=== PATIENT | male | born 1980 | race Two or more races ===

== ENCOUNTER 2019-11-18 13:04 | Inpatient (IN) | payer SELFPAY ==
[~2019-11-18] VITALS: Ht 165.1 cm; Wt 93.0 kg
[2019-11-18 13:15] VITALS: BP 136/88
--- NOTE | 2019-11-18 13:15 | NUR ---
ED Nurse Note: Patient walked in to ED from home c/o right side abdominal pain since last night. Denies nausea, vomiting, diarrhea. Per pt, he feels like there is air inside his abdomen. Not in any distress. Pt AAOx4, verbally responsive, on room air. ERPA at bedside.
--- NOTE | 2019-11-18 13:20 | NUR ---
ED Nurse Note: IV line established. Blood and urine specimen collected and sent to lab.
[2019-11-18] MEDS ORDERED: Ketorolac 30mg Inj IV ONE (13:30)
[2019-11-18 13:41] LABS: HEMATOCRIT 44.9 % (42.0-52.0); HEMOGLOBIN 15.1 G/DL (14.2-18.0); MEAN CORPUSCULAR VOLUME 96 FL (80-99); PLATELET COUNT 179 K/UL (150-450); RED BLOOD COUNT 4.66 M/UL (4.70-6.10); RED CELL DISTRIBUTION WIDTH 11.6 % (11.6-14.8); WHITE BLOOD COUNT 15.4 K/UL (4.8-10.8)
[2019-11-18 13:45] LABS: APPEARANCE,URINE CLEAR; BILIRUBIN, URINE NEGATIVE (NEGATIVE); COLOR,URINE PALE YELLOW; GLUCOSE, URINE (UA) NEGATIVE (NEGATIVE); KETONES,URINE NEGATIVE (NEGATIVE); LEUKOCYTE ESTERASE ,URINE NEGATIVE (NEGATIVE); NITRITE,URINE NEGATIVE (NEGATIVE); PH,URINE 7 (4.5-8.0); PROTEIN,URINE 1+ (NEGATIVE); UROBILINOGEN,URINE NORMAL MG/DL (0.0-1.0)
[2019-11-18 14:00] LABS: ANION GAP 11 mmol/L (5-15); BLOOD UREA NITROGEN 11 mg/dL (7-18); CALCIUM 8.6 MG/DL (8.5-10.1); CARBON DIOXIDE 26 MMOL/L (21-32); CHLORIDE 99 MMOL/L (98-107); CREATININE 1.2 MG/DL (0.55-1.30); POTASSIUM 3.5 MMOL/L (3.5-5.1); SODIUM 136 MMOL/L (136-145)
[2019-11-18] MEDS ORDERED: Omnipaque-300 100ml vial INJ PRN (14:00)
[2019-11-18 14:11] LABS: ALANINE AMINOTRANSFERASE 40 U/L (12-78); ALBUMIN 4.1 G/DL (3.4-5.0); ALBUMIN/GLOBULIN RATIO 0.9 (1.0-2.7); ALKALINE PHOSPHATASE 72 U/L (46-116); ASPARTATE AMINO TRANSFERASE 19 U/L (15-37); BILIRUBIN,TOTAL 1.2 MG/DL (0.2-1.0)
[2019-11-18 14:15] LABS: BILIRUBIN,DIRECT 0.2 MG/DL (0.0-0.3)
--- NOTE | 2019-11-18 14:20 | NUR ---
ED Nurse Note: Pt was taken to CT.
--- NOTE | 2019-11-18 14:33 | NUR ---
ED Nurse Note: Pt returned from CT.
--- NOTE | 2019-11-18 15:42 | Diagnostic Imaging Report ---
EXAM: CT CT Abdomen Pelvis w/Contrast INDICATION: Abdominal pain. COMPARISON: None TECHNIQUE: Axial images were obtained through the abdomen pelvis with intravenous contrast. Sagittal and coronal reformats are generated. All CT scans at this facility are performed using dose modulation techniques as appropriate to a performed exam including the following: automated exposure control with adjustment of the mA and/or kV according to patient size. RADIATION DOSE: CTDIvol: 9.7 mGy DLP: 560.7 mGy-cm Dose information generated by the CT scanner is available in PACS. FINDINGS: The lung bases are clear. There is mild diffuse fatty liver. The spleen is homogeneous. Gallbladder is without sludge or stone and there is no wall thickening. The pancreas is unremarkable. Adrenals are normal in morphology. The kidneys are normal in size, shape and axis. Small bowel loops are nondistended. The colon is also nondistended with average amount of stool. The appendix is distended with surrounding inflammation consistent with clinical suspicion of acute appendicitis. There is no free fluid or free air. No pathologic adenopathy demonstrated. Urinary bladder appears unremarkable. There is a large fatty left inguinal hernia. IMPRESSION: DISTENDED AND INFLAMED APPENDIX COMPATIBLE WITH ACUTE APPENDICITIS. LARGE FATTY LEFT INGUINAL HERNIA. FATTY LIVER.
--- NOTE | 2019-11-18 15:45 | Emergency Room Report ---
History of Present Illness General Chief Complaint: Abdominal Pain Source: Patient (Frankie Westfall) Present Illness HPI 39-year-old male with no signal past medical history here complaining of sudden onset of right-sided abdominal pain pointing to right mid abdomen periumbilical that started last night. Denies any nausea vomiting diarrhea. Denies fever and chills. Rates the pain 3 out of 10 without radiation. Patient has no guarding to palpation however reports that it started without doing anything strenuous. Denies any urinary symptoms. Denies tobacco smoking marijuana use per denies alcohol intake. Denies eating anything out of the ordinary. Also complains of acid reflux and flatulence. Denies chest pain, shortness of breath , headache and dizziness. Has not taken medication for symptom relief. (Frankie Westfall) Allergies: Coded Allergies: No Known Allergies (Unverified , 11/18/19) COVID-19 Screening Contact w/high risk pt: No Recent Travel to affected area: No Experienced COVID-19 symptoms?: No COVID-19 Testing performed NUT TAPPER: No (Frankie Westfall) Patient History Past Medical History: see triage record Past Surgical History: none Pertinent Family History: none Immunizations: UTD Reviewed Nursing Documentation: PMH: Agreed; PSxH: Agreed (Frankie Westfall) Nursing Documentation-PMH Past Medical History: No Stated History (Frankie Westfall) Review of Systems All Other Systems: negative except mentioned in HPI (Frankie Westfall) Physical Exam Vital Signs Date Time Temp Pulse Resp B/P (MAP) Pulse Ox O2 Delivery O2 Flow Rate FiO2 11/18/19 13:08 99.7 101 22 136/88 (104) 96 Room Air Sp02 EP Interpretation: reviewed, normal General Appearance: no apparent distress, alert, GCS 15, non-toxic Head: normocephalic, atraumatic Eyes: bilateral eye normal inspection, bilateral eye PERRL ENT: hearing grossly normal, normal pharynx, no angioedema, normal voice Neck: full range of motion, supple, supple/symm/no masses Respiratory: chest non-tender, lungs clear, normal breath sounds, no rhonchi, no respiratory distress, speaking full sentences Cardiovascular #1: regular rate, rhythm, no edema, no murmur, normal capillary refill Gastrointestinal: normal bowel sounds, soft, no mass, no peritonitis, non- distended, no guarding, no pulsatile mass, no rebound, tenderness - periumbilical Rectal: deferred Musculoskeletal: back normal Neurologic: alert, motor strength/tone normal, oriented x3, sensory intact, responsive, speech normal Psychiatric: judgement/insight normal, memory normal, mood/affect normal, no suicidal/homicidal ideation Skin: no rash Lymphatic: no adenopathy (Frankie Westfall) Medical Decision Making PA Attestation Diagnosis and treatment plans were reviewed and discussed with my supervising physician Dr[facility] Ryder [facility] Diagnostic Impression: Primary Impression: Appendicitis Qualified Codes: K35.890 - Other acute appendicitis without perforation or gangrene ER Course 39-year-old male with no signal past medical history here complaining of sudden onset of right-sided abdominal pain pointing to right mid abdomen periumbilical that started last night. Denies any nausea vomiting diarrhea. Denies fever and chills. Rates the pain 3 out of 10 without radiation. Patient has no guarding to palpation however reports that it started without doing anything strenuous. Denies any urinary symptoms. Denies tobacco smoking marijuana use per denies alcohol intake. Denies eating anything out of the ordinary. Also complains of acid reflux and flatulence. Denies chest pain, shortness of breath , headache and dizziness. Has not taken medication for symptom relief. Ddx considered but are not limited to: appendicitis, cholecystis, gastritis, gastroenteritis, UTI, pyelonephritis, SBO, diverticulitis, influenza with GI manifestation, NC, pancreatitis, gastritis Vital signs: are WNL, pt. is afebrile H&PE are most consistent with: Appendicitis ORDERS: abdominal CT, abdominal pain set, EKG, chest x-ray ED INTERVENTIONS: NS bolus, morphine, Zofran, Zosyn, Pepcid Patient was admitted with diagnosis of appendicitis to Dr. Damon under supervision of Dr.: Aleksey Robbins was also consulted pt stable at time of admission (Frankie Westfall) ER Course Please see above note. History and physical performed by me also. CT is diagnostic for appendicitis. Agree with treatment plan. Patient will need an operation. No evidence at this time of perforation or peritonitis. Patient examined by Dr. Robbins in the emergency department in the emergency department. (Chicho Ryder MD) EKG Diagnostic Results Rate: normal Rhythm: NSR ST Segments: no acute changes Other Impression No acute ST changes (Frankie Westfall) Chest X-Ray Diagnostic Results Chest X-Ray Diagnostic Results : Chest X-Ray Ordered: Yes # of Views/Limited/Complete: 1 View Indication: Other EP Interpretation: Yes PA Xray: Interpretation reviewed, by supervising MD, and agrees with findings. Interpretation: no consolidation, no effusion, no pneumothorax Impression: No acute disease Electronically Signed by: Frankie Rodríguez PA-C (Frankie Westfall) CT/MRI/US Diagnostic Results CT/MRI/US Diagnostic Results : Imaging Test Ordered: CT abdomen pelvis with contrast Impression Appendicitis noted (Frankie Westfall) Last Vital Signs Date Time Temp Pulse Resp B/P (MAP) Pulse Ox O2 Delivery O2 Flow Rate FiO2 11/18/19 14:00 99.6 11/18/19 13:15 101 22 136/88 96 Room Air (Frankie Westfall) Last Vital Signs Date Time Temp Pulse Resp B/P (MAP) Pulse Ox O2 Delivery O2 Flow Rate FiO2 11/19/19 00:00 99.3 116 21 133/90 (104) 93 11/18/19 21:36 Room Air Status: improved (Chicho Ryder MD) Disposition: ADMITTED INPATIENT Condition: Serious Scripts No Active Prescriptions or Reported Meds Referrals: NOT CHOSEN IPA/,REFERRING (PCP) Frankie Westfall Nov 18, 2019 15:45 Chicho Ryder MD Nov 18, 2019 16:06
[2019-11-18] MEDS ORDERED: Morphine Sulfate 2mg/ml Inj(IV/IM USE ONLY) IVP ONE (16:00)
[2019-11-18] MEDS ORDERED: Piperacillin/Tazobactam 3.375 GM in NS 110 ML IVPB ONE (16:00)
--- NOTE | 2019-11-18 16:06 | NUR ---
ED Nurse Note: Xray at bedside.
[2019-11-18 16:10] VITALS: BP 133/69
--- NOTE | 2019-11-18 18:14 | Diagnostic Imaging Report ---
Indication: Reason For Exam: PAIN Technique: Single AP view of the chest. Comparison: CT abdomen and pelvis from the same day. Findings: The cardiomediastinal silhouette is within normal limits. There is no focal consolidation, pneumothorax or pleural effusion. Osseous structures demonstrate no acute abnormality. IMPRESSION: No radiographic evidence of acute cardiac pulmonary disease.
--- NOTE | 2019-11-18 19:25 | NUR ---
ED Nurse Note: Report given to ARACELIS Waddell. pt is ready for transfer to floor
--- NOTE | 2019-11-18 19:50 | NUR ---
NURSE NOTES: Recived pt from er nurse Addy jones. pt is awake,a&o x4, and verbal. pt has no sob and cough. pt is complaining of pain and fever is 102. pt is ambulatory. Iv is intact and asymptomatic. Patient is NPO except ice chips and meds. Bed in the lowest position,locked and call light within reach. We will continue monitoring the pt.
[2019-11-18 20:00] VITALS: BP 125/86
--- NOTE | 2019-11-18 20:03 | Consultation ---
History of Present Illness General Date patient seen: Nov 18, 2019 Reason for Hospitalization: Abdominal Pain Present Illness HPI 39-year-old male with no signal past medical history here complaining of sudden onset of right-sided abdominal pain pointing to right mid abdomen periumbilical that started last night. Denies any nausea vomiting diarrhea. Denies fever and chills. Rates the pain 3 out of 10 without radiation. Patient has no guarding to palpation however reports that it started without doing anything strenuous. Denies any urinary symptoms. Denies tobacco smoking marijuana use per denies alcohol intake. Denies eating anything out of the ordinary. Also complains of acid reflux and flatulence. Denies chest pain, shortness of breath , headache and dizziness. Has not taken medication for symptom relief. Surgery called to evaluate and assist with care. Patient seen, patient evaluate , chart reviewed CT reviewed Allergies: Coded Allergies: No Known Allergies (Unverified , 11/18/19) COVID-19 Screening Contact w/high risk pt: No Recent Travel to affected area: No Experienced COVID-19 symptoms?: No Medication History No Active Prescriptions or Reported Meds Patient History History Provided By: Patient, Medical Record, PMD Healthcare decision maker Resuscitation status Advanced Directive on File Past Medical/Surgical History Past Medical/Surgical History: (1) Appendicitis Review of Systems Review of Symptoms General ROS: no weight loss or fever Psychological ROS: no depression or mood changes, no memory loss Ophthalmic ROS: no visual changes or eye irritation ENT ROS: no nasal congestion, hearing loss, dizziness Allergy and Immunology ROS: no allergic symptoms or urticaria Hematological and Lymphatic ROS: no swollen glands, unusual bleeding or bruising Endocrine ROS: no polyuria, polydipsia, weight changes, temperature intolerance Respiratory ROS: no cough, shortness of breath, or wheezing Cardiovascular ROS: no chest pain or dyspnea on exertion Gastrointestinal ROS: ++abdominal pain, --bright red blood in stool. Musculoskeletal ROS: no myalgias or arthralgias Neurological ROS: no TIA or stroke symptoms Dermatological ROS: no new or changing skin lesions, rashes or pruritis Physical Exam Physical Exam General appearance: alert, cooperative, no distress, appears stated age Head: Normocephalic, without obvious abnormality, atraumatic Eyes: conjunctivae/corneas clear. PERRL, EOM's intact. Fundi benign Throat: Lips, mucosa, and tongue normal. Teeth and gums normal Neck: supple, symmetrical, trachea midline, no adenopathy, thyroid: not enlarged, symmetric, no tenderness/mass/nodules, no carotid bruit and no JVD Lungs: clear to auscultation bilaterally Heart: regular rate and rhythm, S1, S2 normal, no murmur, click, rub or gallop Abdomen: soft, rlq-tender. Bowel sounds normal. No masses, no organomegaly Extremities: extremities normal, atraumatic, no cyanosis or edema Pulses: 2+ and symmetric Skin: Skin color, texture, turgor normal. No rashes or lesions Neurologic: Grossly normal Last 24 Hour Vital Signs Date Time Temp Pulse Resp B/P (MAP) Pulse Ox O2 Delivery O2 Flow Rate FiO2 11/18/19 16:30 99.6 11/18/19 16:10 99.6 89 19 133/69 100 Room Air 11/18/19 14:00 99.6 11/18/19 13:15 99.7 101 22 136/88 96 Room Air 11/18/19 13:15 101 22 Room Air 11/18/19 13:08 99.7 101 22 136/88 (104) 96 Room Air Laboratory Tests Test 11/18/19 13:22 11/18/19 15:35 White Blood Count 15.4 K/UL (4.8-10.8) H Red Blood Count 4.66 M/UL (4.70-6.10) L Hemoglobin 15.1 G/DL (14.2-18.0) Hematocrit 44.9 % (42.0-52.0) Mean Corpuscular Volume 96 FL (80-99) Mean Corpuscular Hemoglobin 32.3 PG (27.0-31.0) H Mean Corpuscular Hemoglobin Concent 33.5 G/DL (32.0-36.0) Red Cell Distribution Width 11.6 % (11.6-14.8) Platelet Count 179 K/UL (150-450) Mean Platelet Volume 9.8 FL (6.5-10.1) Neutrophils (%) (Auto) % (45.0-75.0) Lymphocytes (%) (Auto) % (20.0-45.0) Monocytes (%) (Auto) % (1.0-10.0) Eosinophils (%) (Auto) % (0.0-3.0) Basophils (%) (Auto) % (0.0-2.0) Differential Total Cells Counted 100 Neutrophils % (Manual) 81 % (45-75) H Lymphocytes % (Manual) 8 % (20-45) L Monocytes % (Manual) 6 % (1-10) Eosinophils % (Manual) 0 % (0-3) Basophils % (Manual) 0 % (0-2) Band Neutrophils 5 % (0-8) Platelet Estimate Adequate Platelet Morphology Normal Red Blood Cell Morphology Normal Urine Color Pale yellow Urine Appearance Clear Urine pH 7 (4.5-8.0) Urine Specific [place] 1.005 (1.005-1.035) Urine Protein 1+ (NEGATIVE) H Urine Glucose (UA) Negative (NEGATIVE) Urine Ketones Negative (NEGATIVE) Urine Blood 5+ (NEGATIVE) H Urine Nitrite Negative (NEGATIVE) Urine Bilirubin Negative (NEGATIVE) Urine Urobilinogen Normal MG/DL (0.0-1.0) Urine Leukocyte Esterase Negative (NEGATIVE) Urine RBC 10-15 /HPF (0 - 0) H Urine WBC 0-2 /HPF (0 - 0) Urine Squamous Epithelial Cells Occasional /LPF Urine Bacteria Occasional /HPF (NONE) Sodium Level 136 MMOL/L (136-145) Potassium Level 3.5 MMOL/L (3.5-5.1) Chloride Level 99 MMOL/L (98-107) Carbon Dioxide Level 26 MMOL/L (21-32) Anion Gap 11 mmol/L (5-15) Blood Urea Nitrogen 11 mg/dL (7-18) Creatinine 1.2 MG/DL (0.55-1.30) Estimat Glomerular Filtration Rate > 60 mL/min (>60) Glucose Level 144 MG/DL (74-106) H Calcium Level 8.6 MG/DL (8.5-10.1) Total Bilirubin 1.2 MG/DL (0.2-1.0) H Direct Bilirubin 0.2 MG/DL (0.0-0.3) Aspartate Amino Transf (AST/SGOT) 19 U/L (15-37) Alanine Aminotransferase (ALT/SGPT) 40 U/L (12-78) Alkaline Phosphatase 72 U/L (46-116) Troponin I 0.000 ng/mL (0.000-0.056) Total Protein 8.5 G/DL (6.4-8.2) H Albumin 4.1 G/DL (3.4-5.0) Globulin 4.4 g/dL Albumin/Globulin Ratio 0.9 (1.0-2.7) L Lipase 80 U/L (73-393) Urine Opiates Screen Negative (NEGATIVE) Urine Barbiturates Screen Negative (NEGATIVE) Phencyclidine (PCP) Screen Negative (NEGATIVE) Urine Amphetamines Screen Negative (NEGATIVE) Urine Benzodiazepines Screen Negative (NEGATIVE) Urine Cocaine Screen Negative (NEGATIVE) Urine Marijuana (THC) Screen Negative (NEGATIVE) Prothrombin Time 10.9 SEC (9.30-11.50) Prothromb Time International Ratio 1.0 (0.9-1.1) Activated Partial Thromboplast Time 28 SEC (23-33) Height (Feet): 5 Height (Inches): 7.00 Weight (Pounds): 195 Medications Current Medications Medications (Trade) Dose Ordered Sig/Wale Route PRN Reason Start Time Stop Time Status Last Admin Dose Admin Iohexol (OMNIPAQUE-300 100ml) 100 ml NOW PRN INJ Radiology Procedure 11/18/19 14:00 11/20/19 13:52 Sodium Chloride 1,000 ml @ 300 mls/hr Q3H20M IV 11/18/19 17:15 12/18/19 17:14 11/18/19 17:16 Assessment/Plan Problem List: (1) Appendicitis Assessment & Plan: 39M acute appy npo iv fluids iv abx consent will schedule OR for lap vs open appy when possible thank you The lung bases are clear. There is mild diffuse fatty liver. The spleen is homogeneous. Gallbladder is without sludge or stone and there is no wall thickening. The pancreas is unremarkable. Adrenals are normal in morphology. The kidneys are normal in size, shape and axis. Small bowel loops are nondistended. The colon is also nondistended with average amount of stool. The appendix is distended with surrounding inflammation consistent with clinical suspicion of acute appendicitis. There is no free fluid or free air. No pathologic adenopathy demonstrated. Urinary bladder appears unremarkable. There is a large fatty left inguinal hernia. IMPRESSION: DISTENDED AND INFLAMED APPENDIX COMPATIBLE WITH ACUTE APPENDICITIS. LARGE FATTY LEFT INGUINAL HERNIA. FATTY LIVER. ICD Codes: K37 - Unspecified appendicitis SNOMED: [id number] Salomon Robbins Nov 18, 2019 20:03
--- NOTE | 2019-11-18 20:04 | Pre-Procedure Note/Attestation ---
Pre-Procedure Note/Attestation Complete Prior to Procedure Procedure Narrative: laparoscopic appendectomy possible open Indications for Procedure Pre-Operative Diagnosis: acute appendicitis Attestation I attest that I discussed the nature of the procedure; its benefits; risks and complications; and alternatives (and the risks and benefits of such alternatives ), prior to the procedure, with the patient (or the patient's legal sales representative graphic art). I attest that, if there was a reasonable possibility of needing a blood transfusion, the patient (or the patient's legal sales representative graphic art) was given the [facility] standardized written summary, pursuant to the [employer] Sofie Blood Safety Act ([place] Health and Safety Code # 1645, as amended). I attest that I re-evaluated the patient just prior to the surgery and that there has been no change in the patient's H&P, except as documented below: Salomon Robbins Nov 18, 2019 20:04
[2019-11-18] MEDS ORDERED: LORazepam 1mg tab ORAL PRN (20:15)
[2019-11-18] MEDS ORDERED: Mylanta II UD 30ml ORAL PRN (20:15)
[2019-11-18] MEDS: Morphine Sulfate 2mg/ml Inj(IV/IM USE ONLY) IVP PRN (20:31)
[2019-11-18] MEDS: NS w/KCl 20mEq 1000ml 1,000 ML IV SCH (21:07)
[2019-11-19] VITALS (12 sets, daily range): BP systolic 89–139; BP diastolic 54–91
[2019-11-19 05:51] LABS: HEMATOCRIT 48.7 % (42.0-52.0); HEMOGLOBIN 15.9 G/DL (14.2-18.0); MEAN CORPUSCULAR VOLUME 97 FL (80-99); PLATELET COUNT 137 K/UL (150-450); RED BLOOD COUNT 5.02 M/UL (4.70-6.10); RED CELL DISTRIBUTION WIDTH 12.4 % (11.6-14.8); WHITE BLOOD COUNT 4.8 K/UL (4.8-10.8)
[2019-11-19 05:54] LABS: INR 1.1 (0.9-1.1)
[2019-11-19 05:59] LABS: ANION GAP 14 mmol/L (5-15); BLOOD UREA NITROGEN 14 mg/dL (7-18); CARBON DIOXIDE 21 MMOL/L (21-32); CHLORIDE 107 MMOL/L (98-107); CREATININE 1.6 MG/DL (0.55-1.30); POTASSIUM 3.6 MMOL/L (3.5-5.1); SODIUM 142 MMOL/L (136-145)
[2019-11-19] MEDS: NS w/KCl 20mEq 1000ml 1,000 ML IV SCH ×3 (06:27→23:50)
--- NOTE | 2019-11-19 07:20 | NUR ---
HAND-OFF: Report given to ARACELIS Patel.
--- NOTE | 2019-11-19 07:59 | NUR ---
NURSE NOTES: Patient awake and alert and oriented,IV fluids infusing as ordered.Patient is NPO for schedule surgery this Am.Call light within reach.
[2019-11-19] MEDS ORDERED: NeoSporin Gu Irrig 1ml Amp IRRIG ONE (08:34)
[2019-11-19] MEDS ORDERED: Bacitracin 50000 Units Vial ONE (08:34)
--- NOTE | 2019-11-19 08:53 | NUR ---
NURSE NOTES: DR Luke here to see patient,updated DR on patient heart rate of 127-130, patient has no complaint of chest pain,patient has complaint of abdominal pain.DR Luke state to get stat EKG and give pain medication as ordered.
[2019-11-19] MEDS ORDERED: HYDROcodone/Acetamin 5/325 tab ORAL PRN (09:00)
[2019-11-19] MEDS: Morphine Sulfate 2mg/ml Inj(IV/IM USE ONLY) IVP PRN (09:00)
[2019-11-19] MEDS ORDERED: LR 1000ml 1,000 ML IVLG SCH (09:00)
[2019-11-19] MEDS ORDERED: Labetalol 5mg/ml 20ml vial IV PRN (09:00)
[2019-11-19] MEDS ORDERED: Acetaminophen (Non formulary) 100 ML IV ONE ×2 (09:00→09:30)
[2019-11-19] MEDS ORDERED: Hydromorphone 0.5mg/0.5ml inj IVP PRN (09:00)
[2019-11-19] MEDS ORDERED: Ketorolac 30mg Inj IV PRN ×2 (09:00)
[2019-11-19] MEDS ORDERED: fentaNYL 100 mcg/2 mL IV PRN (09:00)
[2019-11-19] MEDS ORDERED: oxyCODONE HCL/Acetaminophen 5/325mg ORAL PRN (09:00)
[2019-11-19] MEDS ORDERED: Metoclopramide 10mg/2ml Inj IVP PRN (09:00)
[2019-11-19] MEDS ORDERED: Meperidine 25mg/0.5ml Inj (FOR RIGORS ONLY) IV PRN (09:00)
[2019-11-19] MEDS ORDERED: DiphenhydrAMINE 50mg/ml Inj IVP PRN (09:00)
[2019-11-19] MEDS ORDERED: LORazepam Inj 2mg/ml 1ml IV PRN (09:00)
[2019-11-19] MEDS ORDERED: Atropine Sulfate 0.4mg/ml inj IVP PRN (09:00)
[2019-11-19] MEDS ORDERED: HYDROcodone/Acetamin 7.5/325 tab ORAL PRN (09:00)
[2019-11-19] MEDS ORDERED: Midazolam 2mg/2ml Inj IVP PRN (09:00)
--- NOTE | 2019-11-19 09:02 | Anethesia Preoperative Eval ---
Anesthesia Pre-op PMH/ROS General Date of Evaluation: Nov 19, 2019 Time of Evaluation: 11:39 Anesthesiologist: Brady ASA Score: ASA 2 - Emergency Mallampati Score Class I : Soft palate, uvula, fauces, pillars visible Class II: Soft palate, uvula, fauces visible Class III: Soft palate, base of uvula visible Class IV: Only hard plate visible Mallampati Classification: Class II Surgeon: Rosendo Diagnosis: Abd Pain Surgical Procedure: Laparoscopic Appendectomy Anesthesia History: none Family History: no anesthesia problems Allergies: Coded Allergies: No Known Allergies (Unverified , 11/18/19) Medications: see eMAR Patient NPO?: Yes Past Medical History Cardiovascular: Reports: HTN Other: obesity - BMI 35 Anesthesia Pre-op Phys. Exam Physician Exam Last Vital Signs Date Time Temp Pulse Resp B/P (MAP) Pulse Ox O2 Delivery O2 Flow Rate FiO2 11/19/19 08:00 99.9 127 20 134/91 (105) 2 11/18/19 21:36 Room Air Constitutional: NAD Neurologic: CN 2-12 intact Cardiovascular: RRR Respiratory: CTA Gastrointestinal: S/NT/ND Airway Exam Mallampati Score: Class II MO: full ROM: full Teeth: intact Anesthesia Pre-op A/P Labs Hematology Test 11/18/19 13:22 11/19/19 04:45 White Blood Count 15.4 K/UL (4.8-10.8) H 4.8 K/UL (4.8-10.8) # Red Blood Count 4.66 M/UL (4.70-6.10) L 5.02 M/UL (4.70-6.10) Hemoglobin 15.1 G/DL (14.2-18.0) 15.9 G/DL (14.2-18.0) Hematocrit 44.9 % (42.0-52.0) 48.7 % (42.0-52.0) Mean Corpuscular Volume 96 FL (80-99) 97 FL (80-99) Mean Corpuscular Hemoglobin 32.3 PG (27.0-31.0) H 31.6 PG (27.0-31.0) H Mean Corpuscular Hemoglobin Concent 33.5 G/DL (32.0-36.0) 32.6 G/DL (32.0-36.0) Red Cell Distribution Width 11.6 % (11.6-14.8) 12.4 % (11.6-14.8) Platelet Count 179 K/UL (150-450) 137 K/UL (150-450) L Mean Platelet Volume 9.8 FL (6.5-10.1) 9.7 FL (6.5-10.1) Neutrophils (%) (Auto) % (45.0-75.0) % (45.0-75.0) Lymphocytes (%) (Auto) % (20.0-45.0) % (20.0-45.0) Monocytes (%) (Auto) % (1.0-10.0) % (1.0-10.0) Eosinophils (%) (Auto) % (0.0-3.0) % (0.0-3.0) Basophils (%) (Auto) % (0.0-2.0) % (0.0-2.0) Differential Total Cells Counted 100 Neutrophils % (Manual) 81 % (45-75) H Pending Lymphocytes % (Manual) 8 % (20-45) L Pending Monocytes % (Manual) 6 % (1-10) Eosinophils % (Manual) 0 % (0-3) Basophils % (Manual) 0 % (0-2) Band Neutrophils 5 % (0-8) Platelet Estimate Adequate Pending Platelet Morphology Normal Pending Red Blood Cell Morphology Normal Coagulation Test 11/18/19 15:35 11/19/19 04:45 Prothrombin Time 10.9 SEC (9.30-11.50) 12.2 SEC (9.30-11.50) H Prothromb Time International Ratio 1.0 (0.9-1.1) 1.1 (0.9-1.1) Activated Partial Thromboplast Time 28 SEC (23-33) 29 SEC (23-33) Chemistry Test 11/18/19 13:22 11/19/19 04:45 Sodium Level 136 MMOL/L (136-145) 142 MMOL/L (136-145) Potassium Level 3.5 MMOL/L (3.5-5.1) 3.6 MMOL/L (3.5-5.1) Chloride Level 99 MMOL/L (98-107) 107 MMOL/L (98-107) Carbon Dioxide Level 26 MMOL/L (21-32) 21 MMOL/L (21-32) Anion Gap 11 mmol/L (5-15) 14 mmol/L (5-15) Blood Urea Nitrogen 11 mg/dL (7-18) 14 mg/dL (7-18) Creatinine 1.2 MG/DL (0.55-1.30) 1.6 MG/DL (0.55-1.30) H Estimat Glomerular Filtration Rate > 60 mL/min (>60) 48.9 mL/min (>60) Glucose Level 144 MG/DL (74-106) H 134 MG/DL (74-106) H Calcium Level 8.6 MG/DL (8.5-10.1) 8.0 MG/DL (8.5-10.1) L Total Bilirubin 1.2 MG/DL (0.2-1.0) H Direct Bilirubin 0.2 MG/DL (0.0-0.3) Aspartate Amino Transf (AST/SGOT) 19 U/L (15-37) Alanine Aminotransferase (ALT/SGPT) 40 U/L (12-78) Alkaline Phosphatase 72 U/L (46-116) Troponin I 0.000 ng/mL (0.000-0.056) Total Protein 8.5 G/DL (6.4-8.2) H Albumin 4.1 G/DL (3.4-5.0) Globulin 4.4 g/dL Albumin/Globulin Ratio 0.9 (1.0-2.7) L Lipase 80 U/L (73-393) Risk Assessment & Plan Assessment: ASA 2E Plan: GA, SED, GlideScope Status Change Before Surgery: No Pre-Antibiotics Dru Gram Ancef IV Given Within 1 Hr of Incision: Yes Time Given: 11:56 Todd Abreu MD Nov 19, 2019 09:02
--- NOTE | 2019-11-19 09:10 | Surgery Progress Note ---
Surgery Progress Note Subjective Additional Comments labs noted or today Objective Last 24 Hour Vital Signs Date Time Temp Pulse Resp B/P (MAP) Pulse Ox O2 Delivery O2 Flow Rate FiO2 11/19/19 08:00 99.9 127 20 134/91 (105) 2 11/19/19 04:00 99.5 108 20 139/91 (107) 93 11/19/19 00:00 99.3 116 21 133/90 (104) 93 11/18/19 21:36 Room Air 11/18/19 21:02 102.1 11/18/19 21:01 102.8 11/18/19 20:19 Room Air 11/18/19 20:00 102.8 118 19 125/86 (99) 95 11/18/19 16:30 99.6 11/18/19 16:10 99.6 89 19 133/69 100 Room Air 11/18/19 14:00 99.6 11/18/19 13:15 99.7 101 22 136/88 96 Room Air 11/18/19 13:15 101 22 Room Air 11/18/19 13:08 99.7 101 22 136/88 (104) 96 Room Air I&O Intake and Output 11/18/19 11/19/19 19:00 07:00 Intake Total 2110 ml 900 ml Output Total 350 ml Balance 2110 ml 550 ml Intake Oral 0 ml IV Total 2110 ml 900 ml Output Urine Total 350 ml Laboratory Tests Test 11/18/19 13:22 11/18/19 15:35 11/19/19 04:45 White Blood Count 15.4 K/UL (4.8-10.8) H 4.8 K/UL (4.8-10.8) # Red Blood Count 4.66 M/UL (4.70-6.10) L 5.02 M/UL (4.70-6.10) Hemoglobin 15.1 G/DL (14.2-18.0) 15.9 G/DL (14.2-18.0) Hematocrit 44.9 % (42.0-52.0) 48.7 % (42.0-52.0) Mean Corpuscular Volume 96 FL (80-99) 97 FL (80-99) Mean Corpuscular Hemoglobin 32.3 PG (27.0-31.0) H 31.6 PG (27.0-31.0) H Mean Corpuscular Hemoglobin Concent 33.5 G/DL (32.0-36.0) 32.6 G/DL (32.0-36.0) Red Cell Distribution Width 11.6 % (11.6-14.8) 12.4 % (11.6-14.8) Platelet Count 179 K/UL (150-450) 137 K/UL (150-450) L Mean Platelet Volume 9.8 FL (6.5-10.1) 9.7 FL (6.5-10.1) Neutrophils (%) (Auto) % (45.0-75.0) % (45.0-75.0) Lymphocytes (%) (Auto) % (20.0-45.0) % (20.0-45.0) Monocytes (%) (Auto) % (1.0-10.0) % (1.0-10.0) Eosinophils (%) (Auto) % (0.0-3.0) % (0.0-3.0) Basophils (%) (Auto) % (0.0-2.0) % (0.0-2.0) Differential Total Cells Counted 100 Neutrophils % (Manual) 81 % (45-75) H Pending Lymphocytes % (Manual) 8 % (20-45) L Pending Monocytes % (Manual) 6 % (1-10) Eosinophils % (Manual) 0 % (0-3) Basophils % (Manual) 0 % (0-2) Band Neutrophils 5 % (0-8) Platelet Estimate Adequate Pending Platelet Morphology Normal Pending Red Blood Cell Morphology Normal Urine Color Pale yellow Urine Appearance Clear Urine pH 7 (4.5-8.0) Urine Specific [place] 1.005 (1.005-1.035) Urine Protein 1+ (NEGATIVE) H Urine Glucose (UA) Negative (NEGATIVE) Urine Ketones Negative (NEGATIVE) Urine Blood 5+ (NEGATIVE) H Urine Nitrite Negative (NEGATIVE) Urine Bilirubin Negative (NEGATIVE) Urine Urobilinogen Normal MG/DL (0.0-1.0) Urine Leukocyte Esterase Negative (NEGATIVE) Urine RBC 10-15 /HPF (0 - 0) H Urine WBC 0-2 /HPF (0 - 0) Urine Squamous Epithelial Cells Occasional /LPF Urine Bacteria Occasional /HPF (NONE) Sodium Level 136 MMOL/L (136-145) 142 MMOL/L (136-145) Potassium Level 3.5 MMOL/L (3.5-5.1) 3.6 MMOL/L (3.5-5.1) Chloride Level 99 MMOL/L (98-107) 107 MMOL/L (98-107) Carbon Dioxide Level 26 MMOL/L (21-32) 21 MMOL/L (21-32) Anion Gap 11 mmol/L (5-15) 14 mmol/L (5-15) Blood Urea Nitrogen 11 mg/dL (7-18) 14 mg/dL (7-18) Creatinine 1.2 MG/DL (0.55-1.30) 1.6 MG/DL (0.55-1.30) H Estimat Glomerular Filtration Rate > 60 mL/min (>60) 48.9 mL/min (>60) Glucose Level 144 MG/DL (74-106) H 134 MG/DL (74-106) H Calcium Level 8.6 MG/DL (8.5-10.1) 8.0 MG/DL (8.5-10.1) L Total Bilirubin 1.2 MG/DL (0.2-1.0) H Direct Bilirubin 0.2 MG/DL (0.0-0.3) Aspartate Amino Transf (AST/SGOT) 19 U/L (15-37) Alanine Aminotransferase (ALT/SGPT) 40 U/L (12-78) Alkaline Phosphatase 72 U/L (46-116) Troponin I 0.000 ng/mL (0.000-0.056) Total Protein 8.5 G/DL (6.4-8.2) H Albumin 4.1 G/DL (3.4-5.0) Globulin 4.4 g/dL Albumin/Globulin Ratio 0.9 (1.0-2.7) L Lipase 80 U/L (73-393) Urine Opiates Screen Negative (NEGATIVE) Urine Barbiturates Screen Negative (NEGATIVE) Phencyclidine (PCP) Screen Negative (NEGATIVE) Urine Amphetamines Screen Negative (NEGATIVE) Urine Benzodiazepines Screen Negative (NEGATIVE) Urine Cocaine Screen Negative (NEGATIVE) Urine Marijuana (THC) Screen Negative (NEGATIVE) Prothrombin Time 10.9 SEC (9.30-11.50) 12.2 SEC (9.30-11.50) H Prothromb Time International Ratio 1.0 (0.9-1.1) 1.1 (0.9-1.1) Activated Partial Thromboplast Time 28 SEC (23-33) 29 SEC (23-33) Plan Problems: (1) Appendicitis Assessment & Plan: 39M acute appy npo iv fluids iv abx consent will schedule OR for lap vs open appy when possible thank you The lung bases are clear. There is mild diffuse fatty liver. The spleen is homogeneous. Gallbladder is without sludge or stone and there is no wall thickening. The pancreas is unremarkable. Adrenals are normal in morphology. The kidneys are normal in size, shape and axis. Small bowel loops are nondistended. The colon is also nondistended with average amount of stool. The appendix is distended with surrounding inflammation consistent with clinical suspicion of acute appendicitis. There is no free fluid or free air. No pathologic adenopathy demonstrated. Urinary bladder appears unremarkable. There is a large fatty left inguinal hernia. IMPRESSION: DISTENDED AND INFLAMED APPENDIX COMPATIBLE WITH ACUTE APPENDICITIS. LARGE FATTY LEFT INGUINAL HERNIA. FATTY LIVER. Salomon Robbins Nov 19, 2019 09:09
[2019-11-19] MEDS ORDERED: Lidocaine 1% MPF 10mg/ml 5ml ONE (09:14)
[2019-11-19] MEDS ORDERED: Sodium Chloride 10ml vial INJ ONE ×2 (09:14→13:10)
--- NOTE | 2019-11-19 09:27 | NUR ---
NURSE NOTES: Spoke to regarding EKG result. Per : 1. Transfer patient to Tele, 2. STAT venous duplex bilateral legs, 3. NS 1000ml IV bolus x1. Order read back and carried out.
--- NOTE | 2019-11-19 09:31 | NUR ---
NURSE NOTES: DR Luke aware of patient EKG results and wanted patient to be transfer to tele.DR Robbins notified of patient EKG results and DR Robbins will call DR Luke regarding Surgery.DR Ledezma state patient will need surgery.
--- NOTE | 2019-11-19 10:00 | NUR ---
NURSE NOTES: DR Robbins was here to see patient,patient will have surgery today.Patient Swab rapid Covid-19 as ordered.
--- NOTE | 2019-11-19 10:17 | Immediate Post-Op Evaluation ---
Immediate Post-Op Evalulation Immediate Post-Op Evalulation Procedure: Laparoscopic Appendectomy Date of Evaluation: Nov 19, 2019 Time of Evaluation: 14:15 IV Fluids: 1000 LR Blood Products: 500 ALB Estimated Blood Loss: 30 Urinary Output: 0 Blood Pressure Systolic: 101 Blood Pressure Diastolic: 73 Pulse Rate: 76 Respiratory Rate: 14 - MECH VENT O2 Sat by Pulse Oximetry: 94 Temperature (Fahrenheit): 99 Pain Score (1-10): 2 Nausea: No Vomiting: No Complications No anesthetic complications, but pt would not spontaneously ventilate when the anesthetic was off. Naloxone and flumazenil was given. Pt brought to ICU ventilated. Patient Status: no response, patent, ventilated, none Hydration Status: adequate Dru Gram Ancef IV Given Within 1 Hr of Incision: Yes Time Given: 11:56 Todd Abreu MD Nov 19, 2019 10:17
--- NOTE | 2019-11-19 10:18 | Diagnostic Imaging Report ---
EXAM: US Duplex Bilateral Lower Extremities Veins CLINICAL HISTORY: DVT TECHNIQUE: Real-time duplex ultrasound scan of the bilateral lower extremity veins integrating B-mode two-dimensional vascular structure, Doppler spectral analysis, color flow Doppler imaging and compression. COMPARISON: None FINDINGS: Right deep veins: Unremarkable. No DVT in the right common femoral, femoral, proximal deep femoral or popliteal veins. The veins demonstrate normal color flow, are normally compressible, with normal phasic flow and/or augmentation response. Right superficial veins: Unremarkable. No thrombus in the visualized right great saphenous vein. Left deep veins: Unremarkable. No DVT in the left common femoral, femoral, proximal deep femoral or popliteal veins. The veins demonstrate normal color flow, are normally compressible, with normal phasic flow and/or augmentation response. Left superficial veins: Unremarkable. No thrombus in the visualized left great saphenous vein. Soft tissues: No acute findings. No popliteal cyst. IMPRESSION: No deep venous thrombosis identified in either lower extremity.
--- NOTE | 2019-11-19 10:18 | 48 Hour Post Anesthesia Eval ---
Post Anesthesia Evaluation Procedure: Laparoscopic Appendectomy Date of Evaluation: Nov 19, 2019 Time of Evaluation: 16:23 Blood Pressure Systolic: 121 0: 72 Pulse Rate: 81 Respiratory Rate: 17 Temperature (Fahrenheit): 98.6 O2 Sat by Pulse Oximetry: 94 Airway: patent Nausea: No Vomiting: No Pain Intensity: 2 Hydration Status: adequate Cardiopulmonary Status: Stable, Extubated Mental Status/LOC: patient returned to baseline Follow-up Care/Observations: 0 Post-Anesthesia Complications: 0 Follow-up care needed: N/A Todd Abreu MD Nov 19, 2019 10:18
--- NOTE | 2019-11-19 11:04 | NUR ---
NURSE NOTES: Result of Rapid Covid-19 ,negative.
--- NOTE | 2019-11-19 11:23 | NUR ---
NURSE NOTES: Patient off floor to OR.
[2019-11-19] MEDS ORDERED: Rocuronium Bromide 100mg/10ml Inj IV ONE (11:30)
[2019-11-19] MEDS ORDERED: LR 1000ml ONE (11:30)
[2019-11-19] MEDS ORDERED: Neostigmine 1mg/ml 10ml Inj ONE (12:33)
[2019-11-19] MEDS ORDERED: Glycopyrrolate 0.2mg/ml 1ml Vial ONE (12:33)
[2019-11-19] MEDS ORDERED: Naloxone 0.4mg/ml Inj ONE (13:09)
--- NOTE | 2019-11-19 13:20 | Brief Operative Note ---
Immediate Post Operative Note Operative Note Pre-op Diagnosis: acute appendicitis Procedure: lap appy with drain Post-op Diagnosis: acute perforated appendicitis Surgeon: dyan Anesthesiologist: sophia Anesthesia: general, local Specimen: yes Complications: none Condition: stable Fluids: see records Estimated Blood Loss: minimal Drains: none Implant(s) used?: No Salomon Robbins Nov 19, 2019 13:20
--- NOTE | 2019-11-19 13:21 | NUR ---
CASE MANAGEMENT: INITIAL REVIEW 11/18/2019 39 YO M PRESENTED TO OUR ED FROM HOME CC: ABD PAIN PMHx: SI:APPENDICITIS VS: T 99.7 HR 101 RR 22 B/P 136/88 SATS 96% ON RA LABS: WBC 15.4 GLU 144 TBILI 1.2 IS:NS BOLUS X1 ZOFRAN IV X1 PEPCID IV X1 TORADOL IV X1 ZOSYN IV X1 ZOFRAN IV X1 NS BOLUS X1 CXR Impression: No acute disease CT A/P Impression Appendicitis noted PATIENT ADMITTED TO MED/SURG 11/18/2019 @ 1630 DCP: HOME PLAN OF CARE: Procedure: Laparoscopic Appendectomy CONCURRENT REVIEW FOR 11/19/2019 SI;APPENDICITIS POD#1 Laparoscopic Appendectomy VS: T 99.9 HR 127 RR 20 B/P 134/91 SATS 93% ON RA LABS: CR 1.6 GLU 134 CA 8 IS:KCL IV @ 100 ML/HR LR @ 10 ML/HR NS @ 300 ML/HR ZOSYN IV Q8H MED/SURG DCP: HOME PLAN OF CARE: JULI LAWSON
[2019-11-19] MEDS ORDERED: Flumazenil 0.5mg/5ml Inj IV ONE (13:22)
[2019-11-19] MEDS ORDERED: Morphine Sulfate 4mg/ml Inj (IV USE ONLY) IVP PRN ×2 (13:30→15:01)
[2019-11-19] MEDS ORDERED: Morphine Sulfate 2mg/ml Inj(IV/IM USE ONLY) IVP PRN ×2 (13:30→15:01)
[2019-11-19] MEDS ORDERED: Milk of Magnesia 30ml Ud ORAL PRN ×2 (13:30→15:00)
[2019-11-19] MEDS ORDERED: Sennosides 8.6mg tab ORAL PRN ×2 (13:30→15:00)
[2019-11-19] MEDS ORDERED: Piperacillin/Tazobactam 3.375 GM in NS 110 ML IVPB SCH (14:00)
--- NOTE | 2019-11-19 14:30 | NUR ---
NURSE NOTES: Patient went to ICU from recovery room,report was given to Rosalie HSU .Patient personal belongings sent ,patient I Phone with belongings.
[2019-11-19] MEDS ORDERED: Mylanta II UD 30ml ORAL PRN (14:58)
[2019-11-19] MEDS ORDERED: LORazepam 1mg tab ORAL PRN (15:00)
--- NOTE | 2019-11-19 15:11 | NUR ---
NURSE NOTES: Patient admitted at 1425 from Operating room and report received from Brenda.S/p Laparoscopy appendectomy.Patient sedated and orally intubated.No acute distress, afebrile at this time.Condom catheter placed, Michael Crowe middline lower abdomen with large serous sanguinous drainage.Bolus IVF NS running, peripheral line 20G LAC and LH with no apparent infiltrate. Will continue close monitoring. SR on the monitor at this time. Addendum: 11/19/19 at 1751 by Rosalie Oneill RN Patient extubated and placed on nasal canula at 4L , saturate well.
--- NOTE | 2019-11-19 15:27 | NUR ---
RESPIRATORY NOTE: ABG ordered while pt was intubated. Pt no longer intubated.
[2019-11-19] MEDS: Piperacillin/Tazobactam 3.375 GM in NS 110 ML IVPB SCH ×2 (15:36→23:49)
--- NOTE | 2019-11-19 16:02 | NUR ---
NURSE NOTES: Patient turned and repositioned.Awake and alert able to follow command. No significant change in condition.Will continue same care plan.
[2019-11-19] MEDS: Docusate 100mg cap ORAL SCH (18:00)
[2019-11-19] MEDS ORDERED: Docusate 100mg cap ORAL SCH (18:00)
--- NOTE | 2019-11-19 18:01 | NUR ---
NURSE NOTES: Patient turned and repositioned. Mouth care done, suctioned as tolerated.Kept clean and dry. Call light within easy reach. No significant change in condition.Will continue close monitoring
--- NOTE | 2019-11-19 19:25 | NUR ---
HAND-OFF: Report given to ARACELIS Leija.
--- NOTE | 2019-11-19 19:30 | NUR ---
NURSE NOTES: Received report from Rosalie HSU. patient in bed awake,alert oriented x4, able to verbalize needs to staff in [place] and Czech. No s/s of acute distress. On Venturi mask at fi02 40%, satting 93-95%. S/P laparoscopic appendectomy dressing dry and intact on midline lower abdomen Michael Crowe #1 with serosanguineous discharges. Abdomen distended. Instructed patient to use call light for assistance. Condom cath intact draining. SCD on bilateral legs. Cell phone at bedside. Bed alarm on. bed locked and in low position. Covid 19 negative. Will continue to monitor patient.
--- NOTE | 2019-11-19 20:00 | History and Physical Report ---
DATE OF ADMISSION: 11/18/2019 REASON FOR ADMISSION: Appendicitis. HISTORY OF PRESENT ILLNESS: This is a 39-year-old male who has had no significant medical follow-up. The patient was seen and evaluated for abdominal pain. The patient noted to have distended inflamed appendix, compatible with acute appendicitis with large fatty left inguinal hernia. The patient seen by Surgery, was planned appendectomy. The patient also noted to be somewhat tachycardic at present and febrile up to 102.1. The patient with notable abdominal pain as outlined. PAST MEDICAL HISTORY: Essentially negative. MEDICATIONS: Reviewed and reconciled. ALLERGIES: Reviewed and reconciled. SOCIAL HISTORY: Essentially negative. PHYSICAL EXAMINATION: GENERAL: Well-developed male. VITAL SIGNS: T-max 102.1, heart rate of 127, blood pressure 134/91, on 2 liters oxygen, respiratory rate 20. HEENT: Negative. NECK: Supple. LUNGS: Clear. CARDIAC: Mildly tachycardic. ABDOMEN: Soft, but tender right lower quadrant. EXTREMITIES: No edema. LABORATORY DATA: Reviewed. Creatinine 1.6. The white cell count was 15.4, now normal at 4.8. Duplex negative. IMPRESSION: Appendicitis, sinus tachycardia. RECOMMENDATION: Surgical intervention. Possible appendectomy. At present, white cell count normal. Defer antibiotics to Surgery, but we will start patient on Zosyn empirically. Await further intervention and recommendation. IV fluids and NPO status. Gera Luke M.D. DR: MARIANA JOB#: [id number] CC:
--- NOTE | 2019-11-19 20:45 | Operative Note - Dictated ---
DATE OF OPERATION: 11/19/2019 PREOPERATIVE DIAGNOSIS: Acute appendicitis. POSTOPERATIVE DIAGNOSIS: Acute suppurative likely perforated appendicitis. ATTENDING SURGEON: Salomon Robbins M.D. ELECTRONIC DEVICE REPAIRER: None. ANESTHESIOLOGIST: Todd Abreu M.D. PROCEDURE PERFORMED: Laparoscopic appendectomy. ESTIMATED BLOOD LOSS: Minimal. IV FLUIDS: Please see anesthesia records. COMPLICATIONS: None. DRAINS: 19-Yoruba Anmol. COUNTS: Sponge and needle count correct x2. SPECIMENS: Appendix. WOUND CLASSIFICATION: Class III. ANTIBIOTICS: The patient on scheduled IV antibiotics. INDICATIONS FOR PROCEDURE: This is a 39-year-old male, presented to [facility] complaining of worsening abdominal pain, found to have leukocytosis, and CT scan consistent with acute appendicitis. The patient was given antibiotics, admitted, and scheduled for appendectomy. Risks, benefits, and alternatives were discussed. Consent was obtained. OPERATIVE NOTE: The patient was taken to the operating room, placed on the operating table in supine position with left arm tucked. All bony prominences were well padded. SCDs placed. Preoperative time-out taken to identify the patient, procedure, operative staff, and surgical staff. General anesthesia was induced and the patient was intubated. The abdomen was clipped, prepped, and draped in the standard surgical fashion. An infraumbilical incision was made and carried down to the fascia using blunt dissection. The fascia was elevated and incised and entry into the abdomen obtained using open Stephen technique without complication. A 12-mm Stephen trocar inserted. The abdomen was insufflated to 12 to 15 mmHg. The patient tolerated the insufflation well. Laparoscope was inserted and the abdomen was inspected. No injury from initial trocar placement noted. Secondary trocars placed under direct visualization beginning with a left lower quadrant, 12 mm and 5 mm suprapubic. abdomen, there was seropurulent fluid noted in the pelvis. Significant thickened omentum from the right lower quadrant and a very large left groin inguinal hernia with seemingly incarcerated fat, but no bowel contents could be identified. Laparoscopic graspers was used and cecum was identified. See the tenia was followed to the confluence of the base of the appendix noted. Just distal to the base of the appendix, there was an area of necrosis noted with perforation. The area of appendix was distended, dilated, and inflamed. Mesoappendix was inflated. A window was made between the base of the appendix and the appendix and a laparoscopic linear stapler was used and base of the appendix was divided without complication. The mesoappendix was divided as well using a linear stapler followed by clips for hemostasis of oozing. At this time, appendix was placed in endoscopic retrieval bag and removed from the abdomen using left lower quadrant port site. The abdomen was irrigated and suctioned clean. A 19-Yoruba Anmol drain was placed into the pelvis and right lower quadrant through the suprapubic port site. The appendix staple lines were identified, hemostatic, and intact without complication. At this time, we concluded the procedure. Laparoscopic trocars were removed. Abdomen was desufflated. The umbilical trocar site and left lower quadrant trocar site fascia were reapproximated using [id number] #0 Vicryl sutures. The skin incisions were reapproximated using 4-0 Monocryl subcutaneous interrupted sutures. Drain suture of 2-0 nylon placed. Steri-Strips followed by dressings placed. The patient tolerated the procedure well. She was was extubated and taken to postanesthetic care unit in stable condition. Salomon Robbins M.D. DR: GURPREET JOB#: [id number] CC:
--- NOTE | 2019-11-19 21:30 | NUR ---
NURSE NOTES: Encouraged patient to verbalize needs,fears and feelings to staff. Denies any pain or discomfort. Patient teaching provided to support and hold abd with pillow when coughing. call light within easy reach. IV line intact infusing NS with KCL 20 mEq at 100cc/hr. will continue plan of care.
[2019-11-20] VITALS (19 sets, daily range): BP systolic 115–147; BP diastolic 64–104
--- NOTE | 2019-11-20 | NUR ---
NURSE NOTES: Patient with large loose yellow BM, clean patient and changed pads.
--- NOTE | 2019-11-20 02:00 | NUR ---
NURSE NOTES: Patient sleeping comfortably in bed. denies pain or discomfort. skin warm and dry to touch. no fever. no n/v. call light within easy raech. will continue plan of care.
--- NOTE | 2019-11-20 03:15 | NUR ---
NURSE NOTES: Patient with x1 large loose yellowish BM. kept clean and dry. patient complain of 6/10 abd pain. reposition patient and talk therapy provided not effective. Morphine given will rechecked patient.
--- NOTE | 2019-11-20 04:00 | NUR ---
NURSE NOTES: patient in bed sleeping comfortably. no moaning no facial grimaces.
--- NOTE | 2019-11-20 06:00 | NUR ---
NURSE NOTES: Patient in bed sleeping comfortably. patient able to use incentive spirometer when awake. on Venturi mask fi02 40% satting 94%. HOB elevated. no s/s of acute distress noted. Condom cath draining with dark jimi strong urine. Call light within easy reach.
[2019-11-20 06:55] LABS: HEMATOCRIT 37.5 % (42.0-52.0); HEMOGLOBIN 12.1 G/DL (14.2-18.0); MEAN CORPUSCULAR VOLUME 99 FL (80-99); PLATELET COUNT 111 K/UL (150-450); RED CELL DISTRIBUTION WIDTH 12.7 % (11.6-14.8); WHITE BLOOD COUNT 8.4 K/UL (4.8-10.8)
[2019-11-20 07:15] LABS: ANION GAP 10 mmol/L (5-15); BLOOD UREA NITROGEN 20 mg/dL (7-18); CALCIUM 7.2 MG/DL (8.5-10.1); CARBON DIOXIDE 25 MMOL/L (21-32); CHLORIDE 111 MMOL/L (98-107); CREATININE 1.7 MG/DL (0.55-1.30); SODIUM 146 MMOL/L (136-145)
--- NOTE | 2019-11-20 07:19 | NUR ---
NURSE NOTES: Pt in bed awake and orientedx4. No c/o pain at this time. On Venturi mask 40% and sating 97%. IV site in Left hand 20G running with NS w/KCL 20mEq@100ml/hr and Left AC 20g SL patent and asymptomatic. Side railsx3 up for safety. Call light within easy reach. Bed in lowest position and locked. NPO. Will continue plan of care.
--- NOTE | 2019-11-20 07:19 | NUR ---
HAND-OFF: Report given to Shawn Pollack RN.
--- NOTE | 2019-11-20 08:05 | NUR ---
NURSE NOTES: O2 decreased to 2LPM via N/C from Ventri 40%. Encouraged pt for inspirometer and deep breathing and cough. Noted O2 sat 94%
[2019-11-20] MEDS: Piperacillin/Tazobactam 3.375 GM in NS 110 ML IVPB SCH ×2 (08:27→16:24)
[2019-11-20] MEDS: Docusate 100mg cap ORAL SCH ×2 (08:27→18:00)
--- NOTE | 2019-11-20 08:37 | General Progress Note ---
Assessment/Plan Assessment/Plan: appendicitis s/p appy sinus tachycardia PLAN hydration NPO IV zosyn postop care monitor closely impression, plan, and exam edited and reviewed in detail care discussed with RN Subjective Allergies: Coded Allergies: No Known Allergies (Unverified , 11/18/19) Subjective postop d/w surgery Objective Last 24 Hour Vital Signs Date Time Temp Pulse Resp B/P (MAP) Pulse Ox O2 Delivery O2 Flow Rate FiO2 11/20/19 08:00 99.5 100 20 128/76 (93) 94 11/20/19 07:50 95 Venturi Mask 8.0 40 11/20/19 07:00 97 31 115/74 (88) 95 11/20/19 06:00 97 45 119/76 (90) 96 11/20/19 05:00 88 22 115/71 (86) 95 11/20/19 04:00 98.1 89 22 117/71 (86) 95 11/20/19 04:00 Nasal Cannula 8.0 11/20/19 03:45 98.2 11/20/19 03:11 105 33 122/75 (91) 96 11/20/19 03:00 99 39 124/104 (111) 96 11/20/19 02:00 101 31 119/76 (90) 95 11/20/19 01:00 88 33 119/73 (88) 94 11/20/19 00:00 98.2 89 24 124/72 (89) 94 11/20/19 00:00 Nasal Cannula 8.0 11/19/19 23:00 93 28 118/77 (91) 94 11/19/19 22:00 88 22 102/74 (83) 94 11/19/19 21:00 90 22 114/74 (87) 94 11/19/19 20:00 98.5 93 24 107/75 (86) 94 11/19/19 20:00 Nasal Cannula 8.0 11/19/19 19:19 93 Venturi Mask 8.0 40 11/19/19 19:00 98 25 103/67 (79) 93 11/19/19 18:00 98 25 103/67 (79) 90 11/19/19 17:00 95 20 105/84 (91) 98 11/19/19 16:00 80 17 95/61 (72) 98 6/27/20 16:00 98.4 80 17 95/61 (72) 98 11/19/19 16:00 92 11/19/19 14:26 95 Venturi Mask 8.0 40 11/19/19 14:23 Venturi Mask 8.0 40 11/19/19 14:18 81 17 94 11/19/19 14:15 81 25 89/54 (66) 93 11/19/19 14:02 76 14 94 11/19/19 13:59 74 23 100 11/19/19 09:13 Room Air Intake and Output 11/19/19 11/20/19 19:00 07:00 Intake Total 413.0 ml 1337.5 ml Output Total 1050 ml 1500 ml Balance -637.0 ml -162.5 ml IV Total 413.0 ml 1337.5 ml Output Urine Total 775 ml 1450 ml Drainage Total 275 ml 50 ml # Bowel Movements 2 3 Laboratory Tests 11/20/19 05:40: White Blood Count 8.4#, Red Blood Count 3.80L, Hemoglobin 12.1L, Hematocrit 37.5L, Mean Corpuscular Volume 99, Mean Corpuscular Hemoglobin 32.0H, Mean Corpuscular Hemoglobin Concent 32.3, Red Cell Distribution Width 12.7, Platelet Count 111L, Mean Platelet Volume 11.4H, Neutrophils (%) (Auto) , Lymphocytes (% ) (Auto) , Monocytes (%) (Auto) , Eosinophils (%) (Auto) , Basophils (%) (Auto) , Neutrophils % (Manual) [Pending], Lymphocytes % (Manual) [Pending], Platelet Estimate [Pending], Platelet Morphology [Pending], Sodium Level 146H, Potassium Level 4.0, Chloride Level 111H, Carbon Dioxide Level 25, Anion Gap 10, Blood Urea Nitrogen 20H, Creatinine 1.7H, Estimat Glomerular Filtration Rate 45.6, Glucose Level 137H, Calcium Level 7.2L Height (Feet): 5 Height (Inches): 5.00 Weight (Pounds): 211 Objective WDWN NAD clear breath sounds bilaterally without rhonchi or wheeze S1S2RR tachy without MRG tender abdomen no CCE nonfocal Gera Luke MD Nov 20, 2019 08:37
--- NOTE | 2019-11-20 08:43 | NUR ---
PT Note Acknowledged order for PT eval/tx. PT order was written on 11/19/19 at 1327; order for patient to be transferred to ICU was written on 11/19/19 at 6222. Will need new PT orders for patient to be seen for physical therapy.
--- NOTE | 2019-11-20 08:50 | Diagnostic Imaging Report ---
EXAM: XR Chest, 1 View CLINICAL HISTORY: SOB TECHNIQUE: Frontal view of the chest. COMPARISON: November 18, 2019. FINDINGS: Cardiac silhouette is within normal limits allowing for portable technique. No edema or failure. Low lung volumes with elevated right hemidiaphragm. Interval development of bilateral infiltrates. Likely small left pleural effusion. IMPRESSION: Interval development of bilateral infiltrates, correlate for pneumonia. <MYCVCSECTION> Communications: 11/20/19 09:01 Call Nurse called RN Min on 11/19 09:01 (-07:00)
[2019-11-20] MEDS: NS w/KCl 20mEq 1000ml 1,000 ML IV SCH ×2 (09:46→18:31)
--- NOTE | 2019-11-20 10:00 | NUR ---
NURSE NOTES: Pt in bed awake and orientedx4. Denied pain. Encouraged deep breathing, cough and spirometer. Noted O 2 sat 94-95% on 2LPM via N/C. Call light within easy reach. No s/s of bleeding noted. Will continue plan of care.
--- NOTE | 2019-11-20 13:30 | NUR ---
NURSE NOTES: Received patient from Min RN. Patient is awake, alert and oriented x4. Receiving oxygen via Nasal Cannula 2L/min, O2 saturation at 100%. Patient is Sinus Rhythm on the heart monitor, HR 94. IV site is left hand 20g receiving NS with 20mEq KCl at 100cc/hr, left AC 20g is intact and asymptomatic. Bed is locked, placed in lowest position, side rails up x2, bed alarm on, all of patient's needs met. Will continue to monitor.
--- NOTE | 2019-11-20 14:40 | NUR ---
CASE MANAGEMENT:REVIEW 11/20/19 SI: ACUTE APPY. POD #1 99.5 100 20 128/76 95% ON VENTURI MASK H/H-12.1/37.5 PLT-111 BUN+20 CR+1.7 IS: IV ZOSYN Q8HRS IVF+KCL@100/HR IV MORPHINE Q4HRS PRN : TO ICU POST RECOVERY ROOM PLAN: WEAN O2 TO NASAL CANNULA
--- NOTE | 2019-11-20 15:29 | NUR ---
NURSE NOTES: Patient is resting comfortably in bed, no signs of acute distress. All needs met, will continue to monitor.
--- NOTE | 2019-11-20 15:50 | NUR ---
TRANSFER TO FLOOR: Patient transferred to [facility], per Dr. Robbins. Report given to Brenda HSU. Belongings and medications given to oncoming nurse. Family and or S/O informed of transfer.
--- NOTE | 2019-11-20 16:03 | NUR ---
Received patient from ICU,patient is alert and oriented.02 0n at 2L N/C,noted some SOB on exertion,will monitor.IV fluids infusing as ordered.Abdominal dressing intact with small amount of old drainage noted.Patient has J/P drainage with serous sanguineous slightly cloudy liquid.Patient state no complaint of pain at this time.Patient has his personal belongings and cell phone.Patient remains NPO as ordered.Bed alarm is on,call light within reach.
[2019-11-20] MEDS ORDERED: Mylanta II UD 30ml ORAL PRN (16:05)
[2019-11-20] MEDS ORDERED: LORazepam 1mg tab ORAL PRN (16:06)
[2019-11-20] MEDS ORDERED: NS 275ml ONE (17:16)
[2019-11-20] MEDS ORDERED: Tubing IV Secondary IV ONE (17:16)
--- NOTE | 2019-11-20 18:41 | NUR ---
NURSE NOTES: Patient oral temperature 101.2,encourage I/S,will notify Doctor Rosendo.J/P drain 50cc emptied.patient voiding with out difficulty 525 of jimi color urine.abdomina dressing remains intact no increase in the old drainage noted.
[2019-11-20] MEDS ORDERED: Morphine Sulfate 2mg/ml Inj(IV/IM USE ONLY) IVP PRN (19:15)
[2019-11-20] MEDS ORDERED: Morphine Sulfate 4mg/ml Inj (IV USE ONLY) IVP PRN (19:15)
--- NOTE | 2019-11-20 19:30 | NUR ---
NURSE NOTES: Received report from ARACELIS Gutierrez. A/Ox4. pt laying in bed. Denies pain. No distress noted. Breathing regular and unlabored.on NC 2 liters. Markus drain intact. Encouraged deep breathing. Pt denies pain. Call light within reach. Bed low and locked position. bed alarm on. Will continue plan of care.
--- NOTE | 2019-11-20 19:48 | NUR ---
HAND-OFF: Report given to Na HSU.
[2019-11-21] VITALS: BP 130/66
[2019-11-21] MEDS: NS w/KCl 20mEq 1000ml 1,000 ML IV SCH ×3 (02:44→17:45)
[2019-11-21 04:00] VITALS: BP 138/84
[2019-11-21 06:57] LABS: HEMATOCRIT 34.8 % (42.0-52.0); HEMOGLOBIN 11.4 G/DL (14.2-18.0); MEAN CORPUSCULAR VOLUME 98 FL (80-99); PLATELET COUNT 122 K/UL (150-450); RED BLOOD COUNT 3.54 M/UL (4.70-6.10); RED CELL DISTRIBUTION WIDTH 12.8 % (11.6-14.8); WHITE BLOOD COUNT 8.2 K/UL (4.8-10.8)
--- NOTE | 2019-11-21 07:31 | NUR ---
HAND-OFF: Report given to ARACELIS Callaway. Addendum: 11/21/19 at 0734 by Na Johnson RN Report given to ARACELIS mcdonald.
[2019-11-21 07:47] LABS: ALANINE AMINOTRANSFERASE 23 U/L (12-78); ALBUMIN 2.5 G/DL (3.4-5.0); ALBUMIN/GLOBULIN RATIO 0.6 (1.0-2.7); ALKALINE PHOSPHATASE 43 U/L (46-116); ANION GAP 11 mmol/L (5-15); ASPARTATE AMINO TRANSFERASE 20 U/L (15-37); BILIRUBIN,TOTAL 1.1 MG/DL (0.2-1.0); BLOOD UREA NITROGEN 20 mg/dL (7-18); CALCIUM 7.6 MG/DL (8.5-10.1); CARBON DIOXIDE 22 MMOL/L (21-32); CHLORIDE 111 MMOL/L (98-107); CREATININE 1.3 MG/DL (0.55-1.30); POTASSIUM 3.7 MMOL/L (3.5-5.1); SODIUM 144 MMOL/L (136-145)
[2019-11-21 07:48] LABS: BILIRUBIN,DIRECT 0.3 MG/DL (0.0-0.3)
--- NOTE | 2019-11-21 08:00 | NUR ---
NURSE NOTES: Received report from Shira HSU, pt is a/a/o x4 laying in bed with no signs of distress or other issues at this time. surgical sites dry and intact. per report pt had an episode of low fever of 100F, per report Tylenol was given and temp went down to 99F. call light within reach, bed in lowest position. side rales up x2. I will f/u as needed.
--- NOTE | 2019-11-21 08:52 | General Progress Note ---
Assessment/Plan Assessment/Plan: appendicitis s/p appy sinus tachycardia possible pneumonia fever PLAN hydration NPO IV zosyn add vanco repeat cxr postop care monitor closely impression, plan, and exam edited and reviewed in detail care discussed with RN Subjective Allergies: Coded Allergies: No Known Allergies (Unverified , 11/18/19) Subjective postop d/w surgery pulmonary infiltrates Objective Last 24 Hour Vital Signs Date Time Temp Pulse Resp B/P (MAP) Pulse Ox O2 Delivery O2 Flow Rate FiO2 11/21/19 04:13 99.0 11/21/19 04:00 100.0 80 17 138/84 (102) 93 11/21/19 00:00 99.0 88 20 130/66 (87) 95 11/20/19 21:00 Nasal Cannula 2.0 11/20/19 20:00 94 Nasal Cannula 2.0 28 11/20/19 20:00 99.1 85 17 129/83 (98) 93 11/20/19 18:17 101.2 88 26 123/78 (93) 93 11/20/19 16:48 Nasal Cannula 2.0 11/20/19 16:00 Nasal Cannula 2.0 11/20/19 15:00 77 26 132/64 (86) 95 11/20/19 14:00 97 31 147/90 (109) 95 11/20/19 13:00 80 23 137/90 (106) 94 11/20/19 12:00 98.8 87 24 128/83 (98) 94 11/20/19 12:00 Nasal Cannula 2.0 11/20/19 11:46 83 11/20/19 11:00 83 26 133/83 (100) 94 11/20/19 10:00 82 25 125/82 (96) 94 11/20/19 09:00 94 20 126/76 (93) 94 Intake and Output 11/20/19 11/21/19 19:00 07:00 Intake Total 926.00 ml 900 ml Output Total 1550 ml 940 ml Balance -624.00 ml -40 ml IV Total 926.00 ml 900 ml Output Urine Total 1500 ml 900 ml Drainage Total 50 ml 40 ml # Voids 1 # Bowel Movements 1 Laboratory Tests 11/21/19 05:40: White Blood Count 8.2, Red Blood Count 3.54L, Hemoglobin 11.4L, Hematocrit 34.8L , Mean Corpuscular Volume 98, Mean Corpuscular Hemoglobin 32.1H, Mean Corpuscular Hemoglobin Concent 32.6, Red Cell Distribution Width 12.8, Platelet Count 122L, Mean Platelet Volume 9.4, Neutrophils (%) (Auto) , Lymphocytes (%) ( Auto) , Monocytes (%) (Auto) , Eosinophils (%) (Auto) , Basophils (%) (Auto) , Neutrophils % (Manual) [Pending], Lymphocytes % (Manual) [Pending], Platelet Estimate [Pending], Platelet Morphology [Pending], Sodium Level 144, Potassium Level 3.7, Chloride Level 111H, Carbon Dioxide Level 22, Anion Gap 11, Blood Urea Nitrogen 20H, Creatinine 1.3, Estimat Glomerular Filtration Rate > 60, Glucose Level 94, Calcium Level 7.6L, Total Bilirubin 1.1H, Direct Bilirubin 0.3 , Aspartate Amino Transf (AST/SGOT) 20, Alanine Aminotransferase (ALT/SGPT) 23, Alkaline Phosphatase 43L, Total Protein 6.7, Albumin 2.5L, Globulin 4.2, Albumin /Globulin Ratio 0.6L Height (Feet): 5 Height (Inches): 5.00 Weight (Pounds): 211 Objective WDWN NAD reduced breath sounds bilaterally with scattered rhonchi [id number] without MRG tender abdomen no CCE nonfocal Gera Luke MD Nov 21, 2019 08:52
[2019-11-21] MEDS: Docusate 100mg cap ORAL SCH ×2 (09:04→17:45)
[2019-11-21] MEDS: Piperacillin/Tazobactam 3.375 GM in NS 110 ML IVPB SCH ×5 (09:05→23:21)
--- NOTE | 2019-11-21 11:04 | NUR ---
RADIOLOGY DEPT., CHEST X-RAY DONE.-P.DYE
[2019-11-21] MEDS ORDERED: Vancomycin 1.5gm/NS Premix q24h IVPB SCH (11:30)
--- NOTE | 2019-11-21 11:47 | Diagnostic Imaging Report ---
Indication: Shortness of breath Technique: One view of the chest Comparison: 11/20/2019 Findings: There are bilateral basilar atelectatic changes. Right basilar and questionable left retrocardiac consolidation. The heart is enlarged. There is a small left pleural effusion. Findings are unchanged Impression: Unchanged, over one day, findings as above.
--- NOTE | 2019-11-21 12:25 | NUR ---
CASE MANAGEMENT:REVIEW 11/21/19 SI: S/P ACUTE APPY WITH DRAIN . PNA 100.0 80 17 138/84 93% ON ON RA CL- 111 PLT-122 BUN+20 CA+ 7.6 T.CAREN 1.1 ALB 2.5 IS: IV VANCOMYCIN/NS X1 IV ZOSYN TID IV KCL/NS @100ML TYLENOL PO Q6HR/PRN XRAY Chest 1v-bilateral basilar atelectatic changes \: 3E MED SURG UNIT PLAN: WEAN O2 TO NASAL CANNULA CONTROL FEVERS NPO CONT HYDRATION
[2019-11-21] MEDS ORDERED: Milk of Magnesia 30ml Ud ORAL PRN (15:00)
[2019-11-21] MEDS ORDERED: Sennosides 8.6mg tab ORAL PRN (15:00)
[2019-11-21 15:39] VITALS: BP 142/90
--- NOTE | 2019-11-21 16:13 | General Progress Note ---
Progress Note Progress Note s/p lap appy doing well improving labs improved exam improved pain minimal respiratory improved diet as tolerated drain removed d/c in AM rx and f/u given Salomon Robbins Nov 21, 2019 16:13
--- NOTE | 2019-11-21 19:18 | NUR ---
NURSE NOTES: Received report from Marta HSU. Rounding is done. Patient is a/o x4. No c/o pain at this time. No any distress noted at this time. Dressing on 2 incisions of surgical site are c/d/i . IV sites are intact and iv fluid is running. Bed is on alarm, locked, and lowest position. Call light within reach. Will continue to monitor.
--- NOTE | 2019-11-21 19:28 | NUR ---
NURSE NOTES:HAND-OFF: Report given to Venus HSU, pt in stable condition. - during my shift MIGUEL drain was removed. - pt was able to ambulate around the unit with steady gait. - pt was able to tolerate his regular diet with no n/v. - one episode of diarrhea noted.
[2019-11-21 20:00] VITALS: BP 129/75
[2019-11-22] VITALS: BP 125/79
[2019-11-22] MEDS: Vancomycin 1.25gm/NS Premix q24h IVPB SCH ×2 (00:26→13:29)
[2019-11-22 04:00] VITALS: BP 127/80
[2019-11-22 05:26] LABS: BASOPHILS % (AUTO) 0.5 % (0.0-2.0); EOSINOPHILS % (AUTO) 1.5 % (0.0-3.0); HEMATOCRIT 38.2 % (42.0-52.0); HEMOGLOBIN 12.5 G/DL (14.2-18.0); MEAN CORPUSCULAR VOLUME 98 FL (80-99); MONOCYTES % (AUTO) 6.6 % (1.0-10.0); NEUTROPHILS % (AUTO) 82.5 % (45.0-75.0); PLATELET COUNT 151 K/UL (150-450); RED BLOOD COUNT 3.92 M/UL (4.70-6.10); RED CELL DISTRIBUTION WIDTH 11.8 % (11.6-14.8); WHITE BLOOD COUNT 8.1 K/UL (4.8-10.8)
--- NOTE | 2019-11-22 07:24 | NUR ---
HAND-OFF: Report given to Luis HSU. Patient in stable condition.
--- NOTE | 2019-11-22 07:40 | NUR ---
NURSE NOTES: Handoff received from Venus HSU. Patient is awake and alert, no signs of distress noted, no reports of pain. Left arm IVs are patent and intact, running IVF as ordered. Per night nurse patient's last temp was 99.7, will continue to monitor. Patient was updated about plan of care and possible discharge today. Bed is low and locked, side rails up x2, call light is within reach.
[2019-11-22] MEDS: NS w/KCl 20mEq 1000ml 1,000 ML IV SCH ×2 (07:53→19:44)
[2019-11-22] MEDS: Piperacillin/Tazobactam 3.375 GM in NS 110 ML IVPB SCH ×3 (07:54→23:42)
[2019-11-22 08:00] VITALS: BP 152/94
[2019-11-22] MEDS: Docusate 100mg cap ORAL SCH ×2 (08:36→17:01)
--- NOTE | 2019-11-22 08:41 | General Progress Note ---
Assessment/Plan Assessment/Plan: appendicitis s/p appy sinus tachycardia possible pneumonia fever PLAN hydration advance diet per GS IV zosyn IV vanco repeat cxr for [facility] postop care monitor closely impression, plan, and exam edited and reviewed in detail care discussed with RN Subjective Allergies: Coded Allergies: No Known Allergies (Unverified , 11/18/19) Subjective postop d/w surgery pulmonary infiltrates without change Objective Last 24 Hour Vital Signs Date Time Temp Pulse Resp B/P (MAP) Pulse Ox O2 Delivery O2 Flow Rate FiO2 11/22/19 08:00 100.2 85 20 152/94 (113) 97 11/22/19 04:00 99.7 68 20 127/80 (96) 94 11/22/19 00:00 98.8 73 20 125/79 (94) 97 11/21/19 21:00 Room Air 11/21/19 20:00 98.5 80 18 129/75 (93) 93 11/21/19 18:20 99.0 11/21/19 15:39 100.2 73 21 142/90 (107) 97 11/21/19 09:00 Room Air Intake and Output 11/21/19 11/22/19 19:00 07:00 Intake Total 1376.666 ml Output Total 300 ml Balance -300 ml 1376.666 ml IV Total 1376.666 ml Output Urine Total 300 ml # Voids 1 Laboratory Tests 11/22/19 04:35: White Blood Count 8.1, Red Blood Count 3.92L, Hemoglobin 12.5L, Hematocrit 38.2L , Mean Corpuscular Volume 98, Mean Corpuscular Hemoglobin 31.9H, Mean Corpuscular Hemoglobin Concent 32.8, Red Cell Distribution Width 11.8, Platelet Count 151, Mean Platelet Volume 9.3, Neutrophils (%) (Auto) 82.5H, Lymphocytes ( %) (Auto) 9.0L, Monocytes (%) (Auto) 6.6, Eosinophils (%) (Auto) 1.5, Basophils (%) (Auto) 0.5 Height (Feet): 5 Height (Inches): 5.00 Weight (Pounds): 211 Objective WDWN NAD reduced breath sounds bilaterally with scattered rhonchi [id number] without MRG tender abdomen no CCE nonfocal Gera Luke MD Nov 22, 2019 08:41
--- NOTE | 2019-11-22 11:45 | Consultation ---
DATE OF CONSULTATION: 11/22/2019 INFECTIOUS DISEASE CONSULTATION CONSULTING PHYSICIAN: Mary Gaytan MD. REFERRING PHYSICIAN: Gera Luke MD. REASON FOR CONSULTATION: Pneumonia and appendicitis. HISTORY OF PRESENTING ILLNESS: This is a 39-year-old gentleman with no significant past medical history, who came in with abdominal pain, nausea, and vomiting. He was found to have an appendicitis. He underwent laparoscopic appendectomy. Subsequently, he was found to have pneumonia and an Infectious Disease consultation has been obtained for antibiotics. PAST MEDICAL HISTORY: Nothing significant. SOCIAL HISTORY: He does not smoke. He drinks alcohol. No history of drug use. FAMILY HISTORY: Noncontributory. REVIEW OF SYSTEMS: RESPIRATORY: No fever, chills, cough, shortness of breath, or chest pain. CARDIAC: No chest pain. No palpitation. No dizziness. No syncope. GASTROINTESTINAL: No nausea, no vomiting, no abdominal pain, no diarrhea currently. MEDICATIONS: As an inpatient, he is on IV vancomycin, Tylenol, milk of magnesia, senna, Benadryl, Imodium, Restoril, Tylenol, morphine, Zofran, Ativan, Zosyn, and Mylanta. ALLERGIES: No known drug allergies. PHYSICAL EXAMINATION: VITAL SIGNS: Temperature 100.2, T-max of 101.2, pulse 85, respiratory rate 20, blood pressure 152/94. O2 saturation of 97%. HEENT: Pupils are equally reactive to light and accommodation. Mouth appears clean without thrush. NECK: Supple. No adenopathy. No JVD. CARDIOVASCULAR: Regular rate and rhythm. No murmurs. LUNGS: Clear to auscultation bilaterally. No crackles. No wheezes. ABDOMEN: Soft and nontender. Wound is in dressing. EXTREMITIES: No cyanosis, no clubbing, no edema. LABORATORY AND DIAGNOSTIC DATA: White count of 15.4 on 11/18/2019; white count of 8.1 on 11/22/2019; hemoglobin 12.5; hematocrit 38.2; MCV 98; platelet count of 151,000 with neutrophils of 82%. Sodium 144, potassium 3.7, chloride 111, bicarb 22, BUN 20, and creatinine 1.3. Glucose 94. Calcium 7.6. Total bilirubin 1.1, direct bilirubin 0.3, AST 20, ALT 23, alkaline phosphatase 43. Total protein 6.2, albumin 2.5. Lipase of 80. UA is showing 0 to 2 white cells. COVID-19 test is negative. Chest x-ray showing bilateral basal atelectasis, right base and questionable left retrocardiac consolidation noted. CT abdomen and pelvis 11/18/2019 showing distended and inflamed appendix compatible with acute appendicitis. Large fatty left inguinal hernia noted. Fatty liver noted. ASSESSMENT: This is a 39-year-old gentleman with no significant past medical history, who comes in with nausea, vomiting, and abdominal pain and was found to have acute appendicitis with leukocytosis. 1. He underwent laparoscopic appendectomy. 2. He has pneumonia. 3. Leukocytosis is improving. 4. Fever. PLAN: 1. Continue IV vancomycin and Zosyn for now. 2. We will order sputum for Gram stain and culture. 3. We will follow up cultures and adjust antibiotics accordingly. I would like to thank Dr. Luke for this consultation. Mary Gaytan M.D. DR: GAYLA JOB#: [id number] CC:
--- NOTE | 2019-11-22 11:58 | NUR ---
CASE MANAGEMENT:REVIEW 11/22/19 SI: S/P LAP APPY . PNA 100.2 85 20 152/94 97% ON ON RA IS: IV VANCOMYCIN/NS BID IV ZOSYN TID IV KCL/NS @100ML TYLENOL PO Q6HR/PRN \: 3E MED SURG UNIT PLAN: WEAN O2 TO NASAL CANNULA CONTROL FEVERS NPO DRAIN REMOVED START ON REG DIET ID CONSULT FOR FEVER CULTURES DRAWN AND PENDING
[2019-11-22 12:00] VITALS: BP 137/91
[2019-11-22 16:00] VITALS: BP 160/90
--- NOTE | 2019-11-22 19:28 | NUR ---
HAND-OFF: Report given to Pardeep HSU.
--- NOTE | 2019-11-22 19:30 | NUR ---
NURSE NOTES: Report received from Luis HSU. Patient in stable condition. Seen using IS at the bedside. Patient denies any pain as of the moment. Alert and oriented x4. Will monitor throughout shift.
[2019-11-22 20:00] VITALS: BP 144/84
[2019-11-23] VITALS: BP 147/86
[2019-11-23] MEDS: Vancomycin 1.25gm/NS Premix q24h IVPB SCH (01:02)
[2019-11-23 04:00] VITALS: BP 144/76
[2019-11-23] MEDS: NS w/KCl 20mEq 1000ml 1,000 ML IV SCH ×2 (05:00→08:19)
--- NOTE | 2019-11-23 07:17 | NUR ---
HAND-OFF: Report given to ARACELIS Smith. Patient in stable condition and seen using IS.
--- NOTE | 2019-11-23 07:25 | NUR ---
NURSE NOTES: Handoff received from Pardeep HSU. Patient is awake and alert, no signs of distress noted. Left arm IVs are patent and intact, running IVF as ordered. Patient reports 0/10 pain. Patient updated on plan of care and possible discharge today. Bed is low and locked, side rails up x2, call light is within reach.
[2019-11-23 08:00] VITALS: BP 142/88
[2019-11-23] MEDS: Piperacillin/Tazobactam 3.375 GM in NS 110 ML IVPB SCH (08:19)
[2019-11-23] MEDS: Docusate 100mg cap ORAL SCH ×2 (08:54→18:00)
--- NOTE | 2019-11-23 09:13 | General Progress Note ---
Assessment/Plan Assessment/Plan: appendicitis s/p appy sinus tachycardia possible pneumonia fever PLAN subjectively doing well IV zosyn IV vanco repeat cxr for change today and await ID clearance postop care monitor closely impression, plan, and exam edited and reviewed in detail care discussed with RN Subjective Allergies: Coded Allergies: No Known Allergies (Unverified , 11/18/19) Subjective postop d/w surgery cleared pulmonary infiltrates without change Objective Last 24 Hour Vital Signs Date Time Temp Pulse Resp B/P (MAP) Pulse Ox O2 Delivery O2 Flow Rate FiO2 11/23/19 08:00 98.6 66 18 142/88 (106) 96 11/23/19 04:00 99.0 71 20 144/76 (98) 97 11/23/19 00:00 99.3 65 20 147/86 (106) 97 11/22/19 22:43 99.7 11/22/19 21:00 Room Air 11/22/19 20:00 99.7 73 20 144/84 (104) 95 11/22/19 16:00 100.4 70 20 160/90 (113) 97 11/22/19 12:00 99.3 69 21 137/91 (106) 99 Intake and Output 11/22/19 11/23/19 19:00 07:00 Intake Total 1276.6663 ml Output Total 1900 ml Balance -1900 ml 1276.6663 ml IV Total 1276.6663 ml Output Urine Total 1900 ml # Voids 5 # Bowel Movements 1 Height (Feet): 5 Height (Inches): 5.00 Weight (Pounds): 205 Objective WDWN NAD reduced breath sounds bilaterally with scattered rhonchi [id number] without MRG tender abdomen no CCE nonfocal Gera Luke MD Nov 23, 2019 09:13
--- NOTE | 2019-11-23 10:01 | NUR ---
CASE MANAGEMENT:REVIEW 11/23/19 SI: S/P MADI AMEZCUA . PNA 98.6 66 18 142/88 96% ON ON RA IS: IV VANCOMYCIN/NS BID IV ZOSYN TID IV KCL/NS @100ML ~~~DC WHEN COMPLETE TYLENOL PO Q6HR/PRN CHEST X-RAY- PENDING RESULTS \: 3E MED SURG UNIT PLAN: SPUTUM CX -SHOWS: WBC; RARE YEAST; GRAM + COCCI TOLERATING DIET ID TO CLEAR FOR DISCHARGE SELF PAY-MEDICAL APPLICATION COMPLETE
--- NOTE | 2019-11-23 10:47 | Infectious Diseases Prog Note ---
Assessment/Plan Assessment/Plan antibiotics : vancomycin iv, zosyn A 1. pneumonia 2. acute appendicitis s/p laparoscopic appendectomy 3. leucocytosis resolved 4. fever improving P 1. d/c iv vancomycin, zosyn 2. start and continue po levoquin 4 more days 3. will follow up cultures Subjective Constitutional: Denies: fever, chills Respiratory: Denies: shortness of breath, dry cough Gastrointestinal/Abdominal: Denies: nausea, vomiting, diarrhea Musculoskeletal: Denies: pain Allergies: Coded Allergies: No Known Allergies (Unverified , 11/18/19) Objective Last 24 Hour Vital Signs Date Time Temp Pulse Resp B/P (MAP) Pulse Ox O2 Delivery O2 Flow Rate FiO2 11/23/19 09:00 Room Air 11/23/19 08:00 98.6 66 18 142/88 (106) 96 11/23/19 04:00 99.0 71 20 144/76 (98) 97 11/23/19 00:00 99.3 65 20 147/86 (106) 97 11/22/19 22:43 99.7 11/22/19 21:00 Room Air 11/22/19 20:00 99.7 73 20 144/84 (104) 95 11/22/19 16:00 100.4 70 20 160/90 (113) 97 11/22/19 12:00 99.3 69 21 137/91 (106) 99 Height (Feet): 5 Height (Inches): 5.00 Weight (Pounds): 205 Respiratory/Chest: lungs clear Cardiovascular: normal rate, regular rhythm, no gallop/murmur Abdomen: soft, non tender, other - wound clean Extremities: no edema Microbiology Date/Time Source Procedure Growth Status 11/22/19 13:15 Sputum Gram Stain - Final Resulted 11/22/19 13:15 Sputum Sputum Culture Pending Resulted Current Medications Medications (Trade) Dose Ordered Sig/Wale Route PRN Reason Start Time Stop Time Status Last Admin Dose Admin Acetaminophen (Tylenol) 650 mg Q4H PRN ORAL Temp >100.5 11/21/19 19:30 12/21/19 19:29 Acetaminophen (Tylenol) 650 mg Q6H PRN ORAL Mild Pain (Pain Scale 1-3) 11/20/19 19:35 12/19/19 19:34 11/22/19 22:13 Al Hydroxide/Mg Hydroxide (Mylanta II) 30 ml Q6H PRN ORAL dyspepsia 11/20/19 16:05 12/18/19 16:04 Al Hydroxide/Mg Hydroxide (Mylanta) 15 ml Q6H PRN ORAL DYSPEPSIA 11/20/19 21:15 12/19/19 15:01 Dextrose (Dextrose 50%) 25 ml Q30M PRN IV Hypoglycemia 11/20/19 16:00 02/16/20 14:57 Dextrose (Dextrose 50%) 50 ml Q30M PRN IV Hypoglycemia 11/20/19 16:00 02/16/20 14:58 Diphenhydramine HCl (Benadryl) 25 mg Q8H PRN ORAL Itching/Pruritis 11/20/19 23:00 12/19/19 14:59 Docusate Sodium (Colace) 100 mg TWICE A DAY ORAL 11/20/19 18:00 12/19/19 17:59 11/21/19 17:45 Loperamide HCl (Imodium) 2 mg Q4H PRN ORAL Diarrhea 11/20/19 22:45 12/20/19 22:44 11/22/19 07:53 Lorazepam (Ativan) 1 mg Q4H PRN ORAL For Anxiety 11/20/19 16:06 11/25/19 16:05 Magnesium Hydroxide (Mom) 30 ml BIDPRN PRN ORAL Constipation 11/21/19 15:00 12/19/19 14:59 Morphine Sulfate (Morphine Sulfate) 2 mg Q4H PRN IVP pain scale 4-6 11/20/19 19:15 11/26/19 15:00 Morphine Sulfate (Morphine Sulfate) 4 mg Q4H PRN IVP pain score 7-10 11/20/19 19:15 11/26/19 15:00 Ondansetron HCl (Zofran) 4 mg Q6H PRN IVP Nausea & Vomiting 11/20/19 16:08 12/19/19 16:07 Piperacillin Sod/ Tazobactam Sod 3.375 gm/Sodium Chloride 110 ml @ 27.5 mls/hr Q8H IVPB 11/20/19 16:00 11/26/19 15:59 11/23/19 08:19 Sennosides (Senokot) 8.6 mg BIDPRN PRN ORAL Constipation 11/21/19 15:00 12/19/19 14:59 Temazepam (RestoriL) 7.5 mg DAILYPRN PRN ORAL Insomnia 11/20/19 21:00 11/26/19 20:59 Vancomycin HCl (Vanco pharmacy to dose) 1 ea DAILY PRN MISC Per rx protocol 11/21/19 09:00 12/21/19 08:59 Vancomycin/Sodium Chloride 275 ml @ 183.333 mls/hr Q12H IVPB 11/22/19 01:00 11/27/19 00:59 11/23/19 01:02 Mary Gaytan MD Nov 23, 2019 10:47
--- NOTE | 2019-11-23 11:19 | NUR ---
RADIOLOGY DEPT., CHEST X-RAY COMPLETED.-P.DYE
[2019-11-23 12:00] VITALS: BP 139/88
[2019-11-23] MEDS ORDERED: Levofloxacin 500mg tab ORAL SCH (12:00)
--- NOTE | 2019-11-23 14:10 | Diagnostic Imaging Report ---
Indication: Reason For Exam: SOB Technique: One view of the chest Comparison: 11/21/2019 Findings: There is a retrocardiac consolidation again demonstrated, appearing slightly improved. Elevated right hemidiaphragm, bibasilar atelectatic changes persist. Impression: Slight improvement of retrocardiac consolidation, over 2 days. Otherwise stable
[2019-11-23 16:00] VITALS: BP 130/84
--- NOTE | 2019-11-23 18:20 | NUR ---
NURSE NOTES: Patient safely discharged from to home via private vehicle. Belongings list was signed and verified, patient information packet was provided, and any questions were answered. Patient was provided with instructions for his followup appointment and his prescriptions. IV and ID wristband were removed.
--- NOTE | 2019-11-24 13:48 | Discharge Summary ---
Discharge Summary Discharge Summary _ DATE OF ADMISSION: 11/18/2019 DATE OF DISCHARGE: 11/23/2019 DISCHARGED BY: Dr. Luke REASON FOR ADMISSION: 39 years old male with no significant past medical history, presented for right mid abdominal and periumbilical pain. Pain reported 3 out of 10, without radiation, no guarding. He denied nausea, vomiting or diarrhea. He denied fever and chills. He denied urinary symptoms. Upon evaluation patient had leukocytosis WBC 15.4 ,stable hemoglobin, hematocrit and platelet count. Stable electrolytes and renal parameters. Troponin negative . Urinalysis revealed no evidence of UTI. Urine tox screen was negative. CT scan of the abdomen and pelvis revealed distended and inflamed appendix, compatible with acute appendicitis. Large fatty left inguinal hernia. Fatty liver. Chest x-ray revealed no acute cardiopulmonary pathology. Surgeon consulted urgently. Patient received empiric antibiotics, analgesic and admitted to medical surgical floor for further management. CONSULTANTS: [facility]: Patient admitted and continued to be n.p.o. Patient was on IV fluids and empiric antibiotics. Pain management was addressed. Antiemetic were on board as needed. Rapid SARS COV 2 by PCR was negative. Patient subsequently undergone on 11/18 laparoscopic appendectomy. Patient tolerated procedure well. Per surgeon , patient had gangrenous, likely perforated appendix. Pathology of surgical site revealed acute gangrenous appendicitis. No evidence of malignancy. Postoperatively, pain management was addressed. Antibiotic provided . Diet slowly advanced as tolerated. Surgical drain was removed. Patient had intermittent fevers and leukocytosis . Chest x-ray demonstrated development of bilateral infiltrates , probably pneumonia. Ambulation was encouraged. Incentive spirometry was encouraged while in the bed . Venous duplex bilateral lower extremity revealed no evidence of acute DVT. Supplemental oxygen provided and titrated to keep pulse oximetry above 92%. Pulmonary toilet provided. Sputum culture revealed Nery, otehrwise normal aurora. Follow-up chest x-ray showed some improvement of retrocardiac consolidation. Leukocytosis and intermittent fevers resolved. ID specialist recommended to continue antibiotics upon discharge to complete the course. Patient clinically stabilized and was ready for discharge home. FINAL DIAGNOSES: Acute suppurative likely perforated appendicitis Status post laparoscopic appendectomy Leukocytosis-resolved Possible pneumonia Fevers -resolved DISCHARGE MEDICATIONS: Prescription for antibiotic provided. DISCHARGE INSTRUCTIONS: Patient was discharged home. Follow-up with a primary care provider in 1 week. I have been assigned to dictate discharge summary for this account. I was not involved in the patient's management. Diane Vale NP Nov 24, 2019 13:48
== END 2019-11-23 18:20 | disposition home or self-care (01) | DRG 338 ==
LOC: EMR 13:20 → 3E 16:30 → EDBEDREQ 18:45 → ICU 11-19 13:51 → 3E 11-20 15:40
PROC: 0DTJ4ZZ Resection of Appendix, Percutaneous Endoscopic Approach (ICD-10-PCS; principal; 2019-11-19 09:00)
DX: K35.32 Acute appendicitis with perforation, localized peritonitis, and gangrene, without abscess (principal); J18.9 Pneumonia, unspecified organism; K40.90 Unilateral inguinal hernia, without obstruction or gangrene, not specified as recurrent; K76.0 Fatty (change of) liver, not elsewhere classified
CPT/HCPCS: 36415; 71045; 74177; 80048; 80053; 80307; 81003; 82248; 83690; 84484; 85007; 85025; 85610; 85730; 86850; 86900; 86901; 87070; 87205; 93005; 93970; 94002; 94003; 94150; 96361; 96365; 99285; J2405; J2710; J7030; U0002